=== PATIENT | female | born 1975 | race Caucasian/White ===

== ENCOUNTER 2022-09-19 19:06 | Emergency (ER) | payer MEDICAID ==
[~2022-09-19] VITALS: Ht 162.6 cm; Wt 94.8 kg
--- NOTE | 2022-09-19 19:15 | NUR ---
Code stroked called. CT arrived to take patient for scan. Report given to PM shift nurse Zaida HARVEY.
[2022-09-19 19:16] VITALS: BP 180/136
--- NOTE | 2022-09-19 19:28 | NUR ---
PT BROUGHT BACK FROM CT
--- NOTE | 2022-09-19 19:35 | NUR ---
Back from CT in stable condition
[2022-09-19 20:00] LABS: BASOPHILS # (AUTO) 0.1 K/uL (0.00-0.22); BASOPHILS % (AUTO) 1.1 % (0.0-2.0); EOSINOPHILS # (AUTO) 0.6 K/uL (0-0.4); EOSINOPHILS % (AUTO) 4.8 % (0.0-4.0); HEMATOCRIT 43.4 % (36-48); HEMOGLOBIN 14.2 g/dL (12.0-16.0); LYMPHOCYTES # (AUTO) 4.3 K/uL (2.5-16.5); LYMPHOCYTES % (AUTO) 35.6 % (20.5-51.1); MEAN CORPUSCULAR HEMOGLOBIN 29 pg (27-31); MEAN CORPUSCULAR HGB CONC 33 g/dL (33-37); MEAN CORPUSCULAR VOLUME 88.2 fL (80-94); NEUTROPHILS # (AUTO) 6.1 K/uL (1.8-7.7); NEUTROPHILS % (AUTO) 50.5 % (42.2-75.2); PLATELET COUNT (AUTO) 239 K/uL (140-450); RED BLOOD CELL COUNT(AUTO) 4.92 MIL/uL (4.20-5.40); RED CELL DISTRIBUTION WIDTH 13.3 % (11.6-13.7)
[2022-09-19 20:15] LABS: PROTHROMBIN TIME 10.1 secs (10.8-13.4)
[2022-09-19 20:21] LABS: ALBUMIN 3.8 g/dL (3.4-5.0); ANION GAP 10.5 (8-16); ASPARTATE AMINOTRANSFERASE 34 U/L (15-37); CARBON DIOXIDE 28.1 mmol/L (21-32); CHLORIDE 102 mmol/L (98-107); CREATININE 0.6 mg/dL (0.6-1.3); GFR ARICAN-AMERICAN 139 mL/min (>90); GLUCOSE 115 mg/dL (74-106); POTASSIUM 3.6 mmol/L (3.5-5.1); SODIUM SERUM 137 mmol/L (136-145); TOTAL BILIRUBIN 0.3 mg/dL (0.0-1.0); UREA NITROGEN, BLOOD 11 mg/dL (7-18)
[2022-09-19] MEDS ORDERED: predniSONE 20 MG TAB PO ONE (20:30)
[2022-09-19] MEDS ORDERED: PRED20TA5 PO (20:36)
[2022-09-19] MEDS ORDERED: VALA1TAB2 PO (20:36)
--- NOTE | 2022-09-19 20:54 | NUR ---
d/c to home in stable condition with prescriptions, verbalized understanding of instructions given
[2022-09-19 20:58] VITALS: BP 151/92
== END 2022-09-19 20:54 | disposition home or self-care (01) ==
LOC: MED 19:06
DX: G51.0 Bell's palsy (principal); E11.9 Type 2 diabetes mellitus without complications; I10 Essential (primary) hypertension; Z79.899 Other long term (current) drug therapy
CPT/HCPCS: 36415; 70450; 80053; 84484; 85025; 85610; 85730; 93005; 99285; J7512